=== PATIENT | female | born 1985 | race Caucasian/White ===

== ENCOUNTER 2017-11-19 13:35 | Emergency (ER) | payer MEDICAID, OTHER ==
[~2017-11-19] VITALS: Ht 162.6 cm; Wt 115.9 kg
[~2017-11-19 13:35] MED LIST: IBUP-2070 PO; OFLO35OS OU
[2017-11-19 15:03] VITALS: BP 139/77
== END 2017-11-19 15:04 | disposition home or self-care (01) ==
LOC: EMS 13:36
DX: N64.4 Mastodynia (principal); R03.0 Elevated blood-pressure reading, without diagnosis of hypertension; Z88.0 Allergy status to penicillin
CPT/HCPCS: 99281

== ENCOUNTER 2018-08-29 04:37 | Emergency (ER) | payer MEDICAID, OTHER ==
[~2018-08-29] VITALS: Ht 165.1 cm; Wt 115.9 kg
[2018-08-29] MEDS ORDERED: TraMADol HCL 50 MG TABLET PO ONE (05:15)
[2018-08-29 06:29] VITALS: BP 135/82
== END 2018-08-29 06:34 | disposition home or self-care (01) ==
LOC: EMS 04:38
DX: S10.93XA Contusion of unspecified part of neck, initial encounter (principal); Z88.0 Allergy status to penicillin; Z98.51 Tubal ligation status; Y04.0XXA Assault by unarmed brawl or fight, initial encounter; Y93.89 Activity, other specified; Y92.098 Other place in other non-institutional residence as the place of occurrence of the external cause; Y99.8 Other external cause status
CPT/HCPCS: 99283